=== PATIENT | male | born 1995 | race African-American/Black ===

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

== ENCOUNTER 2017-03-22 18:13 | Emergency (ER) | payer OTHER ==
[2017-03-22 18:23] VITALS: BMI 19.9
--- NOTE | 2017-03-22 19:19 | PDOC ---
History of Present Illness - General History Source: Parent(s) Exam Limitations: No Limitations - History of Present Illness Initial Comments: 03/22/17 19:36 Patient is a 22 year old male with a significant past medical history of autism , seizure history, asthma, hyperactivity who presents to the ED sent in from [facility] for evaluation of fever since yesterday. As per mother, she received a call from [facility] that patient was given tylenol at 11:45AM and second dose at 4 PM. Mother denies any known sick contact at [facility]. <Brii Harris - Last Filed: 03/22/17 19:36> <Tal [facility] - Last Filed: 03/22/17 22:50> - General Chief Complaint: Cold Symptoms Stated Complaint: EVALUATION Time Seen by Provider: 03/22/17 19:18 Past History <Brii Harris - Last Filed: 03/22/17 19:36> - Past Medical History Asthma: Yes Psychiatric Problems: Yes (AUTISTIC, HYPERACTIVITY) Seizures: Yes - Psycho/Social/Smoking Cessation Hx Suicidal Ideation: No Smoking History: Never smoked Hx Alcohol Use: No Drug/Substance Use Hx: No Substance Use Type: None <Tal [facility] - Last Filed: 03/22/17 22:50> - Past Medical History Allergies/Adverse Reactions: Allergies Allergy/AdvReac Type Severity Reaction Status Date / Time peanut Allergy Severe Difficulty Verified 03/22/17 18:23 Breathing dairy products Allergy Unknown Uncoded 03/22/17 18:23 wheat, soy, eggs Allergy Unknown Uncoded 03/22/17 18:23 Home Medications: Ambulatory Orders Acetaminophen [Tylenol] 325 mg PO PRN PRN 03/25/16 Albuterol 0.083% Nebulizer Meera [Ventolin 0.083%] 1 neb NEB Q4H PRN 03/25/16 Budesonide [Pulmicort 0.5 mg Nebulizer -] 1 neb PO BID 03/25/16 Diazepam Rectal Gel [Diastat *Rectal Gel*] 20 mg RC PRN PRN 03/25/16 Divalproex [Depakote -] 125 mg PO BID 03/25/16 Epinephrine (Epi-Pen 0.3MG) [Epipen 0.3MG -] 0.3 mg IM ASDIR 03/25/16 Lansoprazole [Prevacid] 30 mg PO DAILY 03/25/16 Loperamide HCl [Loperamide] 2 mg PO PRN PRN 03/25/16 Loratadine 10 mg PO HS 03/25/16 Melatonin 1 mg PO PRN PRN 03/25/16 Mineral Oil/Petrolat,Wht/Water [Eucerin] 1 applic TP DAILY 03/25/16 Mupirocin Ointment [Bactroban Ointment (For Decolonization) -] 1 applic TP TID 03/25/16 Clonazepam [Klonopin -] 0.5 mg PO DAILY 12/17/16 Cholecalciferol (Vitamin D3) [Vitamin D3] 2,000 unit PO DAILY 03/22/17 Pseudoephedrine HCl [Suphedrin] 30 mg PO BID 03/22/17 Risperidone 0.25 mg PO DAILY 03/22/17 Sennosides [Ex-Lax] 15 mg PO ASDIR 03/22/17 Sertraline HCl 25 mg PO DAILY 03/22/17 Review of Systems - Review of Systems Able to Perform ROS?: No Comments:: 03/22/17 19:37 Unable to obtaint due to patient's mental status. <Brii Harris - Last Filed: 03/22/17 19:36> *Physical Exam - Vital Signs Last Vital Signs Temp Pulse Resp BP Pulse Ox 102.0 F H 126 H 20 128/98 95 03/22/17 18:16 03/22/17 18:16 03/22/17 18:16 03/22/17 18:16 03/22/17 18:16 <Brii Harris - Last Filed: 03/22/17 19:36> - Vital Signs Last Vital Signs Temp Pulse Resp BP Pulse Ox 102.0 F H 126 H 20 128/98 95 03/22/17 18:16 03/22/17 18:16 03/22/17 18:16 03/22/17 18:16 03/22/17 18:16 - Physical Exam Comments: 03/22/17 20:21 REVIEW OF SYSTEMS Unable to obtain due to patient's persistent developmental delay. CONSTITUTIONAL: Awake and alert; well-nourished; in no apparent distress HEAD: Normocephalic; atraumatic EYES: PERRL; EOM intact; no photophobia; ENMT: External appears normal; mucous membranes are dry, oropharynx is erythematous, NECK: Supple; non-tender; no cervical lymphadenopathy CARD: Tachycardic; Normal S1, S2; no murmurs, rubs, or gallops RESP: Normal chest excursion with respiration; breath sounds clear and equal bilaterally; no wheezes, rhonchi, or rales ABD: Soft, non-distended; non-tender; no palpable organomegaly, no palpable hernias EXT: Normal ROM in all four extremities; non-tender to palpation; distal pulses intact SKIN: Warm, dry, no petechia NEURO: Patient is awake and alert, nonverbal, moaning incoherently; moving all extremities symmetrically, gait <Tal [facility] - Last Filed: 03/22/17 22:50> ED Treatment Course - LABORATORY CBC & Chemistry Diagram: 03/22/17 19:43 03/22/17 19:43 <Tal [facility] - Last Filed: 03/22/17 22:50> Medical Decision Making - Medical Decision Making 03/22/17 22:47 Patient 22-year-old male with history of severe MR, seizure disorder, presents to the ER with 24-36 hours of fevers from [facility]. In the ER, patient is awake and alert, febrile mildly tachycardic. There is no evidence of meningismus, lungs are clear, serial abdominal exams reveal no focal tenderness. There is no petechial rash. CBC reveals mild leukopenia and mild thrombocytopenia likely related to viral suppression. CMP reveals moderate hyponatremia. Urinalysis is within normal limit and chest x-ray reveals no evidence of infiltrate or effusion. I suspect an acute viral illness at this time. After administration of set amount of thin IV and 1 L of normal saline, patient is resting comfortably, ambulates without difficulty, is noted to be clinically improved and tolerates by mouth. Will discharge with prompt medical follow-up as an outpatient. <Tal [facility] - Last Filed: 03/22/17 22:50> *DC/Admit/Observation/Transfer - Attestations Scribe Attestion: 03/22/17 19:37 Documentation prepared by THALIA Rodriguez, acting as medical laboratory scientist for Tal Wilson MD. <Brii Harris - Last Filed: 03/22/17 19:36> - Attestations Physician Attestion: 03/22/17 22:43 The documentation was prepared by the scribe under my direct supervision. I have reviewed the documentation which correctly represents the findings, medical decision-making and critical action taken by me. <Tal [facility] - Last Filed: 03/22/17 22:50> Diagnosis at time of Disposition: Thrombocytopenia, Hyponatremia, Viral infection Fever Qualifiers: Fever type: unspecified Qualified Code(s): R50.9 - Fever, unspecified - Discharge Dispostion Disposition: HOME Condition at time of disposition: Stable - Referrals Referrals: STAFF,NOT ON [Primary Care Provider] - pmd, two days [Other] - Patient Instructions Printed Discharge Instructions: DI for Viral Syndrome, DI for Hyponatremia
[2017-03-22] MEDS ORDERED: SODIUM CHLORIDE 0.9% 1000 ML INFUS.BAG IV STA (19:32)
[2017-03-22] MEDS ORDERED: ACETAMINOPHEN 1000 MG/100 ML VIAL (NON FORMULARY) IVPB ONE (19:44)
[2017-03-22] MEDS ORDERED: ACETAMINOPHEN INJECTION 100 ML IVPB ONE (19:46)
[2017-03-22 20:24] LABS: BASOPHIL 0.3 % (0-2.0); MCHC 33.3 g/dl (32.0-35.9); MEAN CELL VOLUME 89.9 fl (80-96); MEAN PLT VOLUME 10.3 fl (7.5-11.1); NEUTROPHILS 78.1 % (42.8-82.8); PLATELET COUNT 84 K/MM3 (134-434); RDW 13.6 % (11.9-15.9); WHITE BLOOD COUNT 3.1 K/mm3 (4.0-10.0)
[2017-03-22 20:32] LABS: VENOUS PH 7.41 (7.32-7.42)
[2017-03-22 20:40] LABS: INR 1.28 (0.82-1.09); PROTHROMBIN TIME (PATIENT) 14.1 SEC (9.98-11.88)
[2017-03-22 20:42] LABS: ACTIVATED PTT 35.1 SECONDS (26.9-34.4)
[2017-03-22 20:44] LABS: ALBUMIN 3.8 g/dl (3.4-5.0); BILIRUBIN,TOTAL 0.2 mg/dL (0.2-1.0); CALCIUM 8.6 mg/dL (8.5-10.1); CO2 26 mmol/L (21-32); CREATININE 0.7 mg/dL (0.7-1.3); GLUCOSE,RANDOM 98 mg/dL (74-106); SGOT/AST 17 U/L (15-37); SGPT/ALT 19 U/L (12-78); TOT PROT 7.4 g/dl (6.4-8.2)
[2017-03-22 20:47] LABS: ALK PHOS 86 U/L (45-117); TROPONIN I < 0.02 ng/ml (0.00-0.05)
[2017-03-22 20:49] LABS: URINE APPEARANCE SLCLOUDY; URINE BILIRUBIN NEGATIVE (NEGATIVE); URINE BLOOD NEGATIVE (NEGATIVE); URINE COLOR LTYELLOW; URINE GLUCOSE (UA) NEGATIVE (NEGATIVE); URINE KETONE NEGATIVE (NEGATIVE); URINE LEUK ESTERASE NEGATIVE (NEGATIVE); URINE NITRITE NEGATIVE (NEGATIVE); URINE PROTEIN NEGATIVE (NEGATIVE); URINE UROBILINOGEN NEGATIVE mg/dL (0.2-1.0)
[2017-03-22 20:58] LABS: ANION GAP 10 (8-16)
[2017-03-22] MEDS ORDERED: DIVALPROEX SODIUM 125 MG SPRINKLE CAPS (FP) PO ONE (22:09)
[2017-03-22] MEDS ORDERED: clonazePAM 0.5 MG TABLET PO ONE (22:11)
[2017-03-22] MEDS ORDERED: risperiDONE 0.5 MG TABLET (FP) PO ONE (22:11)
[2017-03-22] MEDS ORDERED: clonazePAM 0.5 MG TABLET ONE (22:18)
[2017-03-22] MEDS ORDERED: risperiDONE 0.5 MG TABLET (FP) ONE (22:19)
[2017-03-22 23:14] VITALS: BP 129/89; PULSE 86; TEMP 97.9
== END 2017-03-22 23:39 | disposition home or self-care (01) ==
LOC: JER 18:13
PROC: 3E033NZ Introduction of Analgesics, Hypnotics, Sedatives into Peripheral Vein, Percutaneous Approach (ICD-10-PCS; principal; 2017-03-22)
PROC: 3E0337Z Introduction of Electrolytic and Water Balance Substance into Peripheral Vein, Percutaneous Approach (ICD-10-PCS; 2017-03-22)
DX: R50.9 Fever, unspecified (principal); B34.9 Viral infection, unspecified; F84.0 Autistic disorder; F79 Unspecified intellectual disabilities; E87.1 Hypo-osmolality and hyponatremia; D69.6 Thrombocytopenia, unspecified
CPT/HCPCS: 36415; 71010-TC; 80053; 80164; 81003; 82550; 82803; 83605; 84484; 85025; 85379; 85384; 85610; 85730; 87040; 87070; 87086; 87186; 87430; 99284-25

== ENCOUNTER 2017-03-24 00:32 | Emergency (ER) | payer OTHER ==
[2017-03-24 01:04] VITALS: BMI 18.1
--- NOTE | 2017-03-24 01:14 | PDOC ---
History of Present Illness - History of Present Illness Initial Comments: 03/24/17 01:16 Patient is a 22 year old male with a significant past medical history of autism , seizures, asthma, and hyperactivity who has been sent to the ED from [facility] for positive lab cultures. Patient was seen in the ED two days ago for fever. During his stay, the patient had lab cultures done and received a call after his discharge that one bottle of the aerobic found gram positive cocci in clusters. The lab called the nursing measurement supervisor who contacted the nursing home to tell the patient to return to the ED. Mother reports the patient is acting at his normal baseline. Denies fever. <Diane Catalan - Last Filed: 03/24/17 01:16> <Bryan Antoine - Last Filed: 03/24/17 01:30> - General Chief Complaint: Revisit, Lab Variance Stated Complaint: FEVER Time Seen by Provider: 03/24/17 00:49 Past History <Diane Catalan - Last Filed: 03/24/17 01:16> - Past Medical History Asthma: Yes Psychiatric Problems: Yes (AUTISTIC, HYPERACTIVITY) Seizures: Yes - Psycho/Social/Smoking Cessation Hx Suicidal Ideation: No Smoking History: Never smoked Have you smoked in the past 12 months: No Information on smoking cessation initiated: No Hx Alcohol Use: No Drug/Substance Use Hx: No Substance Use Type: None <Bryan Antoine - Last Filed: 03/24/17 01:30> - Past Medical History Allergies/Adverse Reactions: Allergies Allergy/AdvReac Type Severity Reaction Status Date / Time peanut Allergy Severe Difficulty Verified 03/24/17 01:00 Breathing dairy products Allergy Unknown Uncoded 03/24/17 01:00 wheat, soy, eggs Allergy Unknown Uncoded 03/24/17 01:00 Home Medications: Ambulatory Orders Acetaminophen [Tylenol] 325 mg PO PRN PRN 03/25/16 Albuterol 0.083% Nebulizer Meera [Ventolin 0.083%] 1 neb NEB Q4H PRN 03/25/16 Budesonide [Pulmicort 0.5 mg Nebulizer -] 1 neb PO BID 03/25/16 Diazepam Rectal Gel [Diastat *Rectal Gel*] 20 mg RC PRN PRN 03/25/16 Divalproex [Depakote -] 125 mg PO BID 03/25/16 Epinephrine (Epi-Pen 0.3MG) [Epipen 0.3MG -] 0.3 mg IM ASDIR 03/25/16 Lansoprazole [Prevacid] 30 mg PO DAILY 03/25/16 Loperamide HCl [Loperamide] 2 mg PO PRN PRN 03/25/16 Loratadine 10 mg PO HS 03/25/16 Melatonin 1 mg PO PRN PRN 03/25/16 Mineral Oil/Petrolat,Wht/Water [Eucerin] 1 applic TP DAILY 03/25/16 Mupirocin Ointment [Bactroban Ointment (For Decolonization) -] 1 applic TP TID 03/25/16 Clonazepam [Klonopin -] 0.5 mg PO DAILY 12/17/16 Cholecalciferol (Vitamin D3) [Vitamin D3] 2,000 unit PO DAILY 03/22/17 Pseudoephedrine HCl [Suphedrin] 30 mg PO BID 03/22/17 Risperidone 0.25 mg PO DAILY 03/22/17 Sennosides [Ex-Lax] 15 mg PO ASDIR 03/22/17 Sertraline HCl 25 mg PO DAILY 03/22/17 Review of Systems - Review of Systems Comments:: 03/24/17 01:16 Patient unable to participate in ROS. <Diane Catalan - Last Filed: 03/24/17 01:16> *Physical Exam - Vital Signs Last Vital Signs Temp Pulse Resp BP Pulse Ox 97.7 F 90 18 119/79 97 03/24/17 01:00 03/24/17 01:00 03/24/17 01:00 03/24/17 01:00 03/24/17 01:00 - Physical Exam Comments: 03/24/17 01:17 GENERAL: Awake, alert, in no acute distress. Nontoxic. Afebrile. HEAD: No signs of trauma EYES: PERRLA, EOMI, sclera anicteric, conjunctiva clear ENT: Auricles normal inspection, hearing grossly normal, nares patent, oropharynx clear without exudates. Moist mucosa NECK: Normal ROM, supple, no lymphadenopathy, JVD, or masses LUNGS: Breath sounds equal, clear to auscultation bilaterally. No wheezes, and no crackles HEART: Regular rate and rhythm, normal S1 and S2, no murmurs, rubs or gallops ABDOMEN: Soft, nontender, normoactive bowel sounds. No guarding, no rebound. No masses EXTREMITIES: Normal range of motion, no edema. No clubbing or cyanosis. No cords, erythema, or tenderness NEUROLOGICAL: Alert, awake, interactive. Nonverbal. Behaving at baseline according to mother. SKIN: Warm, Dry, normal turgor, no rashes or lesions noted. HEMATOLOGIC/LYMPHATIC: No anemia, easy bleeding, or history of blood clots. ALLERGIC/IMMUNOLOGIC: No hives or skin allergy. <Diane Catalan - Last Filed: 03/24/17 01:16> - Vital Signs Last Vital Signs Temp Pulse Resp BP Pulse Ox 97.7 F 90 18 119/79 97 03/24/17 01:00 03/24/17 01:00 03/24/17 01:00 03/24/17 01:00 03/24/17 01:00 <Bryan Antoine - Last Filed: 03/24/17 01:30> ED Treatment Course - RADIOLOGY Radiology Studies Ordered: Category Date Time Status CHEST X-RAY PORTABLE* [RAD] Stat Radiology 03/24/17 00:49 Ordered <Bryan Antoine - Last Filed: 03/24/17 01:30> *DC/Admit/Observation/Transfer - Attestations Scribe Attestion: 03/24/17 01:17 Documentation prepared by Diane Catalan, acting as biomedical specialist for Bryan Antoine MD. <Diane Catalan - Last Filed: 03/24/17 01:16> - Discharge Dispostion Admit: No - Attestations Physician Attestion: 03/24/17 01:14 I, Dr. Bryan Antoine, attest that this document has been prepared under my direction and personally reviewed by me in its entirety. I further attest, that it accurately reflects all work, treatment, procedures and medical decision -making performed by me. <Bryan Antoine - Last Filed: 03/24/17 01:30> Diagnosis at time of Disposition: Positive blood culture, Acute viral syndrome - Discharge Dispostion Disposition: HOME Condition at time of disposition: Good - Referrals Referrals: STAFF,NOT ON [Primary Care Provider] - - Patient Instructions Printed Discharge Instructions: DI for Fever (Symptom) -- Adult Additional Instructions: Klaus Drummond [facility] I believe that the lab result is a contaminant. Later today when the final results are available if there is any problem or concern we will call you. Otherwise continue the discharge instructions from last night. Get the labs from medical records about a week from city [facility] to get the Thyroid Test Results so that you can show them to his doctors. Return to us if any problems. Best- Dr. Bryan Antoine
[2017-03-24 01:45] LABS: VENOUS BLOOD GAS HCO3 26.9 meq/L (19-25); VENOUS PH 7.41 (7.32-7.42)
[2017-03-24 01:46] LABS: BASOPHIL 0.7 % (0-2.0); MCH 30.5 pg (25.7-33.7); MCHC 34.1 g/dl (32.0-35.9); MEAN CELL VOLUME 89.5 fl (80-96); NEUTROPHILS 46.1 % (42.8-82.8); RDW 13.4 % (11.9-15.9); WHITE BLOOD COUNT 2.2 K/mm3 (4.0-10.0)
[2017-03-24 01:54] LABS: URINE APPEARANCE CLEAR; URINE BILIRUBIN NEGATIVE (NEGATIVE); URINE BLOOD NEGATIVE (NEGATIVE); URINE COLOR STRAW; URINE GLUCOSE (UA) NEGATIVE (NEGATIVE); URINE KETONE NEGATIVE (NEGATIVE); URINE LEUK ESTERASE NEGATIVE (NEGATIVE); URINE NITRITE NEGATIVE (NEGATIVE); URINE PROTEIN NEGATIVE (NEGATIVE); URINE UROBILINOGEN NEGATIVE mg/dL (0.2-1.0)
[2017-03-24 02:04] LABS: INR 1.19 (0.82-1.09); PROTHROMBIN TIME (PATIENT) 13.1 SEC (9.98-11.88)
[2017-03-24 02:06] LABS: ACTIVATED PTT 38.4 SECONDS (26.9-34.4)
[2017-03-24 02:15] LABS: ALBUMIN 3.6 g/dl (3.4-5.0); ANION GAP 10 (8-16); BILIRUBIN,TOTAL 0.3 mg/dL (0.2-1.0); CALCIUM 8.3 mg/dL (8.5-10.1); CO2 26 mmol/L (21-32); CREATININE 0.6 mg/dL (0.7-1.3); GLUCOSE,RANDOM 104 mg/dL (74-106); SGOT/AST 22 U/L (15-37); SGPT/ALT 19 U/L (12-78); TOT PROT 6.6 g/dl (6.4-8.2)
[2017-03-24 02:18] LABS: ALK PHOS 85 U/L (45-117); TROPONIN I < 0.02 ng/ml (0.00-0.05)
[2017-03-24] MEDS ORDERED: SODIUM CHLORIDE 1,000 ML IV STA (02:50)
[2017-03-24 02:56] LABS: MEAN PLT VOLUME 10.2 fl (7.5-11.1); PLATELET COUNT 71 K/MM3 (134-434)
[2017-03-24 03:41] LABS: T3 UPTAKE 35.9 % (33-40)
[2017-03-24 03:48] LABS: THYROID STIMULATING HORMONE 7.92 uIU/ml (0.358-3.74)
[2017-03-24 05:38] VITALS: BP 120/80; PULSE 84; TEMP 98
[2017-03-25 08:39] LABS: THYROXINE (T4) 11.3 ug/dl (4.5-12.1)
== END 2017-03-24 05:45 | disposition home or self-care (01) ==
LOC: JER 00:32
PROC: 3E0337Z Introduction of Electrolytic and Water Balance Substance into Peripheral Vein, Percutaneous Approach (ICD-10-PCS; principal; 2017-03-24)
DX: R78.81 Bacteremia (principal); B34.9 Viral infection, unspecified; G40.909 Epilepsy, unspecified, not intractable, without status epilepticus; J45.909 Unspecified asthma, uncomplicated; F84.0 Autistic disorder; F90.9 Attention-deficit hyperactivity disorder, unspecified type
CPT/HCPCS: 36415; 71010-TC; 80053; 81003; 82550; 82553; 82803; 83605; 84436; 84443; 84479; 84481; 84484; 85025; 85610; 85730; 86850; 86900; 86901; 87040; 87086; 99283-25

== ENCOUNTER 2017-11-16 13:54 | Emergency (ER) | payer OTHER ==
[2017-11-16 14:05] VITALS: BP 108/74; PULSE 92; TEMP 97.7; BMI 22.1
--- NOTE | 2017-11-16 15:07 | PDOC ---
History of Present Illness - General Chief Complaint: Injury Stated Complaint: SWOLLEN FACE Time Seen by Provider: 11/16/17 14:18 - History of Present Illness Initial Comments: 11/16/17 14:21 Patient is a 22-year-old male with past medical history of autism, OCD, ADHD, who presents to the emergency department today with a bump on his left forehead. Patient is from [facility]. His wharfinger chief states that when he came to school this morning they noticed the bump on his forehead. They're unsure as to when the patient got the bump. Patient has been acting his baseline per the wharfinger chief. He has not vomited since noticing the bump. He presents for evaluation of the bump at this time. Residential doctor: Dr. Oliver Past History - Travel Traveled outside of the country in the last 30 days: No Close contact w/someone who was outside of country & ill: No - Past Medical History Allergies/Adverse Reactions: Allergies Allergy/AdvReac Type Severity Reaction Status Date / Time peanut Allergy Severe Difficulty Verified 11/16/17 14:01 Breathing dairy products Allergy Unknown Uncoded 11/16/17 14:01 wheat, soy, eggs Allergy Unknown Uncoded 11/16/17 14:01 Home Medications: Ambulatory Orders Acetaminophen [Tylenol] 325 mg PO PRN PRN 03/25/16 Albuterol 0.083% Nebulizer Meera [Ventolin 0.083%] 1 neb NEB Q4H PRN 03/25/16 Budesonide [Pulmicort 0.5 mg Nebulizer -] 1 neb PO BID 03/25/16 Diazepam Rectal Gel [Diastat *Rectal Gel*] 20 mg RC PRN PRN 03/25/16 Divalproex [Depakote -] 125 mg PO BID 03/25/16 EPINEPHrine (EPI-PEN 0.3MG) [Epipen 0.3MG -] 0.3 mg IM ASDIR 03/25/16 Lansoprazole [Prevacid] 30 mg PO DAILY 03/25/16 Loperamide HCl [Loperamide] 2 mg PO PRN PRN 03/25/16 Loratadine 10 mg PO HS 03/25/16 Melatonin 1 mg PO PRN PRN 03/25/16 Mineral Oil/Petrolat,Wht/Water [Eucerin] 1 applic TP DAILY 03/25/16 Mupirocin Ointment [Bactroban Ointment (For Decolonization) -] 1 applic TP TID 03/25/16 clonazePAM [Klonopin -] 0.5 mg PO DAILY 12/17/16 Cholecalciferol (Vitamin D3) [Vitamin D3] 2,000 unit PO DAILY 03/22/17 Pseudoephedrine HCl [Suphedrin] 30 mg PO BID 03/22/17 Risperidone 0.25 mg PO DAILY 03/22/17 Sennosides [Ex-Lax] 15 mg PO ASDIR 03/22/17 Sertraline HCl 25 mg PO DAILY 03/22/17 Asthma: Yes Psychiatric Problems: Yes (AUTISTIC, HYPERACTIVITY) Seizures: Yes - Suicide/Smoking/Psychosocial Hx Smoking History: Never smoked Have you smoked in the past 12 months: No Hx Alcohol Use: No Drug/Substance Use Hx: No Substance Use Type: None Review of Systems - Review of Systems Able to Perform ROS?: No (autism) Is the patient limited Hungarian proficient: No *Physical Exam - Vital Signs Last Vital Signs Temp Pulse Resp BP Pulse Ox 97.7 F 92 H 18 108/74 98 11/16/17 14:02 11/16/17 14:02 11/16/17 14:02 11/16/17 14:02 11/16/17 14:02 - Physical Exam Comments: 11/16/17 23:23 GENERAL: Well developed, well nourished. Awake and alert. No acute distress. HEENT: Normocephalic, atraumatic. PERRLA, EOMI. No conjunctival pallor. Sclera are non- icteric. Moist mucous membranes. Oropharynx is clear. NECK: Supple. Full ROM. No JVD. Carotid pulses 2+ and symmetric, without bruits. No thyromegaly. No lymphadenopathy. EXTREMITIES: No cyanosis. No clubbing. No edema. No calf tenderness. SKIN: 2cm round hematoma to the L forehead with mild swelling. Swelling over R cheek, no bruising to the cheek. Warm and dry. Normal capillary refill. No rashes. No jaundice. NEUROLOGICAL: Pt at baseline per special needs caregiver. Cranial nerves 2-12 intact. No deficits to light touch and temperature in face, upper extremities and lower extremities. No motor deficits in the in face, upper extremities and lower extremities. Normoreflexic in the upper and lower extremities. Normal speech. Toes are down- going bilaterally. Gait is normal without ataxia. PSYCHIATRIC: Cooperative. Good eye contact. Appropriate mood and affect. Medical Decision Making - Medical Decision Making 11/16/17 15:[address] Melody TREVIZO, who is in charge of the residents at [facility]. Discussed case. Given that there are no gross neuro changes, agreed to hold off on CT at this time. Recommend close checks on him today. Dr. Phillips agrees and will inform the facility to do more neuro checks/vital checks. Pt observed for over an hour in the ED with no changes. Will d/c back to care facility at this time. Return precautions given. *DC/Admit/Observation/Transfer Diagnosis at time of Disposition: Head injury Qualifiers: Encounter type: initial encounter Qualified Code(s): S09.90XA - Unspecified injury of head, initial encounter - Discharge Dispostion Disposition: HOME Condition at time of disposition: Stable Admit: No - Referrals - Patient Instructions Printed Discharge Instructions: DI for Closed Head Injury Additional Instructions: Bhanu has bruising to his forehead slight swelling to his left cheek. He is acting at his baseline. Please continue to monitor him for the next 12 hours for any changes. This would include not acting his baseline, nausea, vomiting, falling. He may have Tylenol as needed for pain. Please ice the area over his forehead to help reduce swelling. Follow up with the doctor on site tomorrow or Dr. Oliver. Return to emergency department sooner if he is not acting his baseline, vomiting , has balance issues, or has any changes in his symptoms. - Post Discharge Activity Forms/Work/School Notes: Back to School
== END 2017-11-16 15:33 | disposition home or self-care (01) ==
LOC: JERFT 13:54
DX: S09.90XA Unspecified injury of head, initial encounter (principal); X58.XXXA Exposure to other specified factors, initial encounter; Y93.89 Activity, other specified; Y92.159 Unspecified place in reform school as the place of occurrence of the external cause; F84.0 Autistic disorder; F42.9 Obsessive-compulsive disorder, unspecified; F90.9 Attention-deficit hyperactivity disorder, unspecified type; J45.909 Unspecified asthma, uncomplicated
CPT/HCPCS: 99281-25